=== PATIENT | female | born 1995 | race Caucasian/White ===

== ENCOUNTER 2025-10-14 12:02 | Emergency (ER) | payer OTHER, SELFPAY ==
[2025-10-14 12:05] VITALS: BP 122/64; PULSE 82; TEMP 36.8; O2SAT 99; BMI 22.2
--- NOTE | 2025-10-14 12:32 | CT_ITS ---
[address] [address] Patient Name: PASHA SILVA MRN: [id number] date: 1995 Sex: F Assigned Patient Location: ED.MAIN Current Patient Location: ED.MAIN Accession/Order Number: [id number] Exam Date: 10/14/2025 13:00 Report Date: 10/14/2025 13:26 At the request of: MIGUEL GARCIA DO Procedure: CT abdomen pelvis wo con CT abdomen pelvis wo con 10/14/2025 1:09 PM SIGNS AND SYMPTOMS: Lower abdominal pain, nausea TECHNIQUE: Multidetector ct axial images of the abdomen and pelvis were obtained without IV contrast. Multiplanar reformats were performed and reviewed to further define anatomy and possible pathology. CT was performed with one or more of the following dose reduction techniques: Automated exposure control, adjustment of the mA and/or kV according to patient size, or use of iterative reconstruction technique. COMPARISON: None. FINDINGS: Lower Chest: Within normal limits. ABDOMEN: Liver: Within normal limits. Bile Ducts: Normal caliber. Gallbladder: No calcified gallstones. Normal caliber wall. Pancreas: Within normal limits. Spleen: Within normal limits. Adrenals: Within normal limits. Kidneys: Within normal limits. Pelvis: Reproductive Organs: No pelvic masses. Ureters: Within normal limits. Bladder: Within normal limits. Bowel: Normal caliber. There is a normal appendix in the right lower quadrant. Mesenteric Lymph Nodes: No enlarged mesenteric lymph nodes. Peritoneum: There is a small amount of free fluid in the pelvis is physiologic. Vessels: within normal limits Retroperitoneum: Within normal limits. Abdominal Wall: Within normal limits. Bones: Within normal limits. CT/CT abdomen pelvis wo con IMPRESSION: No bowel obstruction or obstructive uropathy. There is a small amount of free fluid in the pelvis is physiologic. There is a normal appendix in the right lower quadrant. Impression dictated by: Owne Villa M.D. 10/14/2025 1:26 PM Dictation Location: [place] [address] Electronically authenticated by: [id number] Y Date: 10/14/2025 13:26
[2025-10-14 12:44] LABS: Hematocrit 37.2 % (36.0-48.0); Hemoglobin 12.7 g/dL (12.0-16.0); Immature Granulocytes Abs Auto 0.00 10^3/uL (0.00-0.03); Immature Granulocytes Pct Auto 0.0 % (0.0-0.5); Lymphocytes Absolute Auto 2.1 10^3/uL (1.2-3.8); Mean Corpuscular HGB Conc 34.1 g/dL (29.9-35.2); Mean Corpuscular Hemoglobin 30.6 pg (26.7-34.0); Mean Corpuscular Volume 89.6 fL (81.0-99.0); Platelet Count 248 10^3/uL (150-450); Red Blood Count 4.15 10^6/uL (4.20-5.40); White Blood Count 5.3 10^3/uL (4.0-11.0)
[2025-10-14 12:59] LABS: Alanine Aminotransferase 28 U/L (14-59); Albumin Globulin Ratio 1.2; Albumin Level 4.0 g/dL (3.4-5.0); Alkaline Phosphatase 85 U/L (46-116); Anion Gap 12.3; Aspartate Amino Transferase 19 U/L (15-37); Blood Urea Nitrogen 12.0 mg/dL (7.0-18.0); Calcium 8.9 mg/dL (8.5-10.1); Carbon Dioxide 27.8 mmol/L (21.0-32.0); Chloride 106 mmol/L (98-107); Estimated GFR (African America >60 (>=60 mL/min/1.73m^2); Estimated GFR (Non-African Ame >60 (>=60 mL/min/1.73m^2); Globulin 3.3 g/dL; Glucose 93 mg/dL (74-106); Potassium 4.1 mmol/L (3.5-5.1); Sodium 142 mmol/L (136-145); Total Protein 7.3 g/dL (6.4-8.2)
[2025-10-14 13:18] LABS: Glucose Urine UA NEGATIVE (NEGATIVE)
[2025-10-14 13:24] LABS: Cast Seen? NONE SEEN #/LPF (NONE SEEN); Crystals Seen? None Seen #/HPF (None Seen); Urine Culture Indicated YES-FRMC
--- NOTE | 2025-10-14 13:40 | ED_ITS ---
HPI HPI - General Adult General Chief complaint: Abdominal Pain Stated complaint: ABDOMINAL PAIN Time Seen by Provider: 10/14/25 12:18 Source: patient Mode of arrival: walk-in History of Present Illness HPI narrative: Patient is a 30-year-old previously healthy female with no chronic medical conditions presenting to the emergency department for evaluation of abdominal pain. Patient states that over the last month she has been having intermittent lower abdominal pain. The pain is located in the lower part of her abdomen on both sides. She states that sharp in nature. It is not associated with food or her menstrual cycle. She denies associated nausea or vomiting. No constipation, diarrhea, vaginal bleeding, or vaginal discharge. She denies currently being . She had a prior but denies any other abdominal surgeries. She states she did colonoscopy 2 years ago, was diagnosed with hemorrhoids but was otherwise normal. She denies history of endometriosis, ovarian cyst, or other gynecologic pathologies. Related Data Allergies Allergy/AdvReac Type Severity Reaction Status Date / Time No Known Drug Allergies Allergy Verified 10/14/25 12:09 Review of Systems ROS Status of ROS 10 or more systems reviewed and unremark able except as noted in history and below PFSH PFSH Social History Little interest or pleasure in doing things: not at all Feeling down, depressed, or hopeless: not at all Exam Narrative Exam Narrative: CONSTITUTIONAL: Well-appearing, answering questions and following commands appropriately SKIN: Was warm and dry. EYES: Sclerae white. EARS, NOSE, THROAT: Moist oral mucosa. RESPIRATORY: Clear to auscultation bilaterally, no wheezes, crackles, or stridor, no use of accessory muscles CARDIOVASCULAR: Normal rate and regular rhythm. There is no S3, S4, murmur, rub. GASTROINTESTINAL: Abdomen is soft and nondistended. There is mild tenderness to palpation throughout the lower quadrants. No organomegaly. MUSCULOSKELETAL: No peripheral edema. NEUROLOGIC: Patient is awake and alert. Facies were symmetrical. Constitutional Vital Signs, click to edit/add: Last Vital Signs Temp 98.2 F 10/14/25 12:05 Pulse 82 10/14/25 12:05 Resp 20 10/14/25 12:05 BP 122/64 10/14/25 12:05 Pulse Ox 99 10/14/25 12:05 O2 Del Method Room Air 10/14/25 12:05 Course Vital Signs Vital signs: Vital Signs Temperature 98.2 F 12/26/25 12:05 Pulse Rate 82 10/14/25 12:05 Respiratory Rate 20 10/14/25 12:05 Blood Pressure 122/64 10/14/25 12:05 Pulse Oximetry 99 10/14/25 12:05 Oxygen Delivery Method Room Air 10/14/25 12:05 Temperature 98.2 F 10/14/25 12:05 Pulse Rate 82 10/14/25 12:05 Respiratory Rate 20 10/14/25 12:05 Blood Pressure 122/64 10/14/25 12:05 Pulse Oximetry 99 10/14/25 12:05 Oxygen Delivery Method Room Air 10/14/25 12:05 Medical Decision Making MDM Narrative Medical decision making narrative: Patient is a 30-year-old female presenting to the emergency department for evaluation of 1 month of intermittent lower abdominal pain. Her vital signs arrival are within normal limits. She is afebrile and hemodynamically stable. Patient has a benign physical examination. Differential diagnosis includes UTI, ovarian cyst, colitis, or other intra- abdominal pathologies. IV was established and laboratory studies were obtained. CT ab/pelvis was ordered. CT abdomen/pelvis independently reviewed and interpreted by myself and radiology demonstrated no acute intra-abdominal pathology. Laboratory studies were unremarkable. No significant electrolyte or metabolic derangement. No evidence of acute kidney injury. No anemia, leukocytosis, or thrombocytopenia. No transaminitis or hyperbilirubinemia. test negative. Urinalysis negative. I do believe the patient is stable for discharge. Unclear as to the exact kaitlyn ology to explain the patient's symptoms, however I can identify an acute, emergent process that would require hospitalization or further diagnostic testing. They were instructed to follow up with her PCP as needed. Return precautions were given including any new or worsening symptoms. Patient understands and agrees to the plan. FINAL IMPRESSION: #Acute lower abdominal pain DISPOSITION: Discharged home CONDITION: Good Lab Data Lab results reviewed: Yes I reviewed the patient's lab results Labs: Lab Results 10/14/25 10/14/25 Range/Units 12:37 13:10 WBC 5.3 (4.0-11.0) 10^3/uL RBC 4.15 L (4.20-5.40) 10^6/uL Hgb 12.7 (12.0-16.0) g/dL Hct 37.2 (36.0-48.0) % MCV 89.6 (81.0-99.0) fL MCH 30.6 (26.7-34.0) pg MCHC 34.1 (29.9-35.2) g/dL RDW 11.8 (11.0-15.0) % Plt Count 248 (150-450) 10^3/uL MPV 9.1 L (9.5-13.5) fL Neut % (Auto) 55.5 (43.0-75.0) % Lymph % (Auto) 39.2 (20.5-60.0) % [place] % (Auto) 4.1 (1.7-12.0) % Eos % (Auto) 0.8 L (0.9-7.0) % Baso % (Auto) 0.4 (0.2-2.0) % Neut # (Auto) 3.0 (1.4-6.5) 10^3/uL Lymph # (Auto) 2.1 (1.2-3.8) 10^3/uL [place] # (Auto) 0.2 L (0.3-0.8) 10^3/uL Eos # (Auto) 0.0 (0.0-0.7) 10^3/uL Baso # (Auto) 0.0 (0.0-0.1) 10^3/uL Abs Immat Gran (auto) 0.00 (0.00-0.03) 10^3/uL Imm/Tot Granulo (auto) 0.0 (0.0-0.5) % Sodium 142 (136-145) mmol/L Potassium 4.1 (3.5-5.1) mmol/L Chloride 106 (98-107) mmol/L Carbon Dioxide 27.8 (21.0-32.0) mmol/L Anion Gap 12.3 BUN 12.0 (7.0-18.0) mg/dL Creatinine 0.65 (0.55-1.02) mg/dL Est GFR ( Amer) >60 (>=60 mL/min/1.73m^2) Est GFR (Non-Af Amer) >60 (>=60 mL/min/1.73m^2) BUN/Creatinine Ratio 18.5 Glucose 93 (74-106) mg/dL Calcium 8.9 (8.5-10.1) mg/dL Total Bilirubin 0.5 (0.2-1.0) mg/dL AST 19 (15-37) U/L ALT 28 (14-59) U/L Alkaline Phosphatase 85 (46-116) U/L Total Protein 7.3 (6.4-8.2) g/dL Albumin 4.0 (3.4-5.0) g/dL Globulin 3.3 g/dL Albumin/Globulin Ratio 1.2 Serum HCG, Qual Negative (NEGATIVE) Urine Color Lt. yellow (YELLOW) Urine Clarity Clear (CLEAR) Urine pH 6.0 (5.0-9.0) Ur Specific [place] 1.020 (1.005-1.025) Urine Protein Negative (NEG/TRACE) mg/dL Urine Glucose (UA) Negative (NEGATIVE) mg/dL Urine Ketones Negative (NEGATIVE) mg/dL Urine Occult Blood Negative (NEGATIVE) Urine Nitrite Negative (NEGATIVE) Urine Bilirubin Negative (NEGATIVE) Urine Urobilinogen 0.2 (0.2-1.0) EU/dL Ur Leukocyte Esterase Negative (NEGATIVE) Urine RBC 0-2 (0-2) #/HPF Urine WBC 0-2 A (NONE SEEN) #/HPF Ur Squamous Epith Cells Many A (NONE/RARE) #/LPF Urine Crystals None seen (None Seen) #/HPF Urine Bacteria Large A (NONE SEEN) #/HPF Urine Casts None seen (NONE SEEN) #/LPF Urine Mucus Trace A (NONE SEEN) Ur Culture Indicated? Yes-[facility] [place] scan - abdomen: Attestation: I personally reviewed and interpreted this imaging study as follows: Radiologist's impression: ITS Impressions Abdomen/Pelvis CT 10/14/25 12:32 IMPRESSION: No bowel obstruction or obstructive uropathy. There is a small amount of free fluid in the pelvis is physiologic. There is a normal appendix in the right lower quadrant. Impression dictated by: Owen Villa M.D. 10/14/2025 1:26 PM Dictation Location[facility] Electronically authenticated by: [id number] Y Date: 10/14/2025 13:26 Discharge Plan Discharge Chief Complaint: Abdominal Pain Clinical Impression: Abdominal pain Patient Disposition: Home, Self-Care Time of Disposition Decision: 13:32 Condition: Good Mode of Transportation: Private Vehicle Print Language: Kazakh Instructions: Abdominal Pain (ED) Referrals: Physician,Non-Staff, MD [Primary Care Provider] - 1 week Discharge Date/Time: 10/14/25 13:36
== END 2025-10-14 13:36 | disposition home or self-care (01) ==
PROVIDERS: Emergency Provider Student in an Organized Health Care Education/Training Program
DX: R10.30 Lower abdominal pain, unspecified (principal)
CPT/HCPCS: 36415; 74176; 80053; 81001; 84703; 85025; 87086; 99285